=== PATIENT | male | born 1985 | race Caucasian/White ===

== ENCOUNTER 2020-06-15 11:18 | Emergency (ER) | payer OTHER ==
[~2020-06-15] VITALS: Ht 190.5 cm; Wt 90.7 kg
[2020-06-15] MEDS ORDERED: MAGNESIUM250 M1 PO (11:33)
[2020-06-15] MEDS ORDERED: PROZAC10 M1 PO (11:33)
[2020-06-15] MEDS ORDERED: OMEPRAZOLE 20 M20 M1 PO (11:33)
[2020-06-15] MEDS ORDERED: TOPROL XL25 MG PO (11:33)
[2020-06-15 11:52] LABS: ABSOLUTE BASOPHILS 0.1 thou/uL (0.0-0.2); ABSOLUTE LYMPHOCYTES 1.6 thou/uL (0.8-5.3); ABSOLUTE MONOCYTES 0.6 thou/uL (0.0-1.2); ABSOLUTE NEUTROPHILS 3.2 thou/uL (1.6-8.1); BASOPHILS 1.2 %; EOSINOPHILS 0.5 %; HEMATOCRIT 40.4 % (42.0-52.0); HEMOGLOBIN 13.9 gm/dL (14.0-18.0); LYMPHOCYTES 28.8 %; MCH 33.6 pg (26.0-34.0); MCHC 34.4 g/dL (28.0-37.0); MCV 97.7 fL (80.0-100.0); MPV 5.9 fl. (7.2-11.1); NUCLEATED RBCS 0 /100WBC; PLATELET COUNT* 290 thou/uL (150-400); POLYS 58.5 %; RBC 4.14 mil/uL (4.50-6.00); RDW-CV 16.9 % (10.5-14.5); WBC 5.4 thou/uL (4.0-11.0)
[2020-06-15 12:00] LABS: CALCIUM 8.2 mg/dL (8.5-10.1); CREATININE 0.9 mg/dL (0.6-1.3); POTASSIUM 3.4 mmol/L (3.5-5.1)
[2020-06-15 12:03] LABS: APTT 22.2 Seconds (25.0-31.3); PROTIME 10.5 Seconds (9.20-11.50)
[2020-06-15 12:10] LABS: ALBUMIN 3.3 g/dL (3.4-5.0); TOTAL BILIRUBIN 0.4 mg/dL (<0.1-1.0); TOTAL PROTEIN 7.4 g/dL (6.4-8.2)
[2020-06-15] MEDS ORDERED: ATIVAN1 M1 PO (12:26)
[2020-06-15] MEDS ORDERED: ZOFRAN ODT4 MG SUBLING (12:26)
[2020-06-15 14:01] VITALS: BP 157/104
== END 2020-06-15 14:01 | disposition home or self-care (01) ==
LOC: M.ERS 11:18
PROVIDERS: Family Medicine
DX: F10.10 Alcohol abuse, uncomplicated (principal); F32.9 Major depressive disorder, single episode, unspecified; F41.9 Anxiety disorder, unspecified; F12.90 Cannabis use, unspecified, uncomplicated; Z79.899 Other long term (current) drug therapy; Y90.9 Presence of alcohol in blood, level not specified